=== PATIENT | male | born 2000 | race Caucasian/White ===

== ENCOUNTER 2021-04-22 18:09 | Emergency (ER) | payer MEDICAID ==
[~2021-04-22] VITALS: Ht 185 cm; Wt 98.0 kg
[2021-04-22] MEDS ORDERED: KETOROLAC 30 MG/ML VIAL IM ONE (19:00)
--- NOTE | 2021-04-22 19:03 | ED Lower Extremity ---
General Chief Complaint: Trauma-Non Activation Stated Complaint: LEG PAIN Nursing Triage Note: PT ARRIVED PER EMS, PT WAS PLAYING FOOTBALL FELL, TWISTED L LEG AND FEMUR AREA STATES HAS KNEE PAIN. PT STATES WHEN HE FELL HE HIT HIS HEAD AND HAD 2 EPISODED OF LOC. PT ARRIVED W C-COLLAR IN PLACE, STATES WHEN HE TURNS HIS HEAD HE IS DIZZY. PT HAS SL #22 R FA. EMS STATES PT WAS HYPERVENTILATION WHEN THEY ARRIVED ON SCENE Source: patient Exam Limitations: no limitations History of Present Illness Date Seen by Provider: Apr 22, 2021 Time Seen by Provider: 18:50 Initial Comments 20-year-old male brought to the emergency room by ambulance chief complaint of left hip thigh and leg pain, some cervical spine pain while playing football with a sibling about an hour and a half prior to arrival. Patient states that he had a loss of consciousness twice. He states he believes his length of loss of consciousness was less than 2 minutes. States that he felt a little nauseous at one point. Did not vomit. Complains of right lateral neck pain. Cervical collar is in place. No alcohol or other illicit substances on board. He complains of left thigh and leg pain and initially complained of numbness to the left leg. He was not able to get himself up off the ground after the injury. No complaints of back pain chest pain or abdominal pain. No recent illnesses. All other review of systems reviewed and negative except as stated. Onset: just prior to arrival (3:30pm) Severity: moderate Pain/Injury Location: left hip, left leg, left knee, left thigh Method of Injury: sports injury Modifying Factors: Improves With Immobilization; Worse With Movement Allergies and Home Medications Allergies Coded Allergies: No Known Drug Allergies (Unverified , 04/22/21) Patient Home Medication List Home Medication List Reviewed: Yes Review of Systems Constitutional: see HPI EENTM: no symptoms reported Respiratory: no symptoms reported Cardiovascular: no symptoms reported Gastrointestinal: no symptoms reported Musculoskeletal: neck pain, other (left hip/thigh/leg pain) Skin: other (abrasion) Psychiatric/Neurological: Paresthesia (left leg) All Other Systems Reviewed Negative Unless Noted: Yes Past Tuxgmhe-Zxoedd-Euzpbg Hx Patient Social History Tobacco Use?: No Substance use?: No Additional substance use comme: HX 2 YEARS AGO Alcohol Use?: No Pt feels they are or have been: No Immunizations Up To Date First/Initial COVID19 Vaccinat: 2020 Second COVID19 Vaccination Fran: 2020 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 oz. kg; 28.00 BMI Method: General Appearance: WD/WN, no apparent distress HEENT: PERRL/EOMI, pharynx normal (tonsils surgically absent) Neck: other (right upper cervical paraspinous muscle tenderness/suboccipital on the right; no midline tenderness;) Cardiovascular: regular rate, rhythm Respiratory: lungs clear, normal breath sounds, no respiratory distress, no accessory muscle use Gastrointestinal: non tender, soft Hips: bilateral hip non-tender, bilateral hip normal inspection; left hip limited range of motion, left hip pain (left thigh), left hip soft tissue tenderness (anterior thigh), left hip other (prefers position of comfort - left hip flexed and external rotation) Legs: bilateral leg non-tender, bilateral leg normal inspection; right leg norm al range of motion, right leg no evidence of injury; left leg soft tissue tenderness (to palpation of anterior tibia - no ecchymoses or swelling) Knees: bilateral knee non-tender, bilateral knee normal inspection; right knee normal range of motion; bilateral knee no evidence of injury Ankles: bilateral ankle non-tender, bilateral ankle normal inspection, bilateral ankle normal range of motion, bilateral ankle no evidence of injury Feet: bilateral foot non-tender, bilateral foot normal inspection, bilateral foot normal range of motion, bilateral foot no evidence of injury; left foot other (abrasion left plantar 1st MTP joint - ) Neurologic/Tendon: normal sensation, normal motor functions, responds to pain Neurologic/Psychiatric: 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 as tested, no motor/sensory deficits, alert, normal mood/affect, oriented x 3, other (DTR's 2+ patellar and achilles bilaterally) Skin: normal color, warm/dry, other (scattered abrasions bilateral feet and left anterior distal tib) Progress/Results/Core Measures Results/Orders My Orders Orders - NATASHA PINTO MD Pelvis With Left Hip 2-3 Views (04/22/21 18:57) Femur, Left, 2 Views (04/22/21 18:57) Ketorolac Injection (Toradol Injection) (04/22/21 19:00) Orphenadrine Inj (Ed Only) (Norflex Inje (04/22/21 19:00) Medications Given in ED Current Medications Medications Dose Ordered Sig/Christal Route Start Time Stop Time Status Last Admin Dose Admin Ketorolac Tromethamine 30 mg ONCE ONCE IM 04/22/21 19:00 04/22/21 19:01 DC 04/22/21 19:05 30 MG Vital Signs/I&O 04/22/21 18:12 Temp 36.8 Pulse 94 Resp 18 B/P (MAP) 144/97 (113) Pulse Ox 94 Blood Pressure Mean: 113 Progress Progress Note : Time: 19:50 Progress Note Patient's x-rays reviewed, no evidence of fracture in the pelvis, left hip and left femur. He is given Toradol in the emergency department for pain. Recommended ice, anti-inflammatories. He verbalized understanding of the plan of care. All questions were sought and answered Diagnostic Imaging Diagonstic Imaging: Xray Comments [email or web address] [place], [place] NAME: [employer] REC#: [id number] PT STATUS: REG ER : 2000 PHYSICIAN: NATASHA PINTO MD ADMIT DATE: 04/22/21/ER Draft Date of Exam:04/22/21 PELVIS WITH LEFT HIP 2-3 VIEWS EXAMINATION: Left hip unilateral 2 or 3 views (w/pelvis when done) HISTORY: Left femur pain COMPARISON: None available. FINDINGS: Pelvic alignment is normal. No acute fracture is seen. Joint spaces are normal. IMPRESSION: 1. No fracture in the pelvis or left hip. Dictated on workstation # [email or web address] Dict: 04/22/211929 Trans: 04/22/211930 CV [id number] Interpreted by: ANGELIKA OLGUIN MD Electronically signed by: Diagonstic Imaging: Xray Comments [email or web address] [place], [place] NAME: [employer] REC#: [id number] PT STATUS: REG ER : 2000 PHYSICIAN: NATASHA PINTO MD ADMIT DATE: 04/22/21/ER Draft Date of Exam:04/22/21 FEMUR, LEFT, 2 VIEWS EXAMINATION: Left femur 2 or more views HISTORY: Football injury COMPARISON: None available. FINDINGS: Alignment is normal. No fracture is seen. Joint spaces are normal. IMPRESSION: 1. No fracture. Dictated on workstation # [email or web address] Dict: 04/22/211927 Trans: 04/22/211929 CV [id number] Interpreted by: ANGELIKA OLGUIN MD Electronically signed by: Departure Impression Primary Impression: Cervical strain, acute Qualified Codes: S16.1XXA - Strain of muscle, fascia and tendon at neck level, initial encounter Additional Impressions: Head injury consultation Contusion of left thigh, initial encounter Disposition: HOME, SELF-CARE Condition: Stable Departure-Patient Inst. Decision time for Depature: 19:51 Referrals: [facility] [place] Patient Instructions: Minor Head Injury (DC), Contusion (DC), Neck Sprain (DC) Add. Discharge Instructions: Ice packs to the area of soreness, 20 minutes at a time 3-4 times daily. Idze-alh-eqpebyg ibuprofen, 4 tablets with food which is 800 mg every 8 hours as needed for pain. Or you can take Alleve, 2 tablets (500mg) every 12 hours. Gentle stretching of sore areas. Return to the ER for worsening pain, swelling, severe headache, persistent vomiting, change in mental status or other emergent, concerning symptoms. NATASHA PINTO MD Apr 22, 2021 19:03
[2021-04-22] MEDS: ORPHENADRINE 60 MG/2 ML (NORFLEX) AMP (ED ONLY) IM ONE ×2 (19:05→19:09)
--- NOTE | 2021-04-22 19:31 | Diagnostic Imaging Report ---
EXAMINATION: Left femur 2 or more views HISTORY: Football injury COMPARISON: None available. FINDINGS: Alignment is normal. No fracture is seen. Joint spaces are normal. IMPRESSION: 1. No fracture. Dictated by: Dictated on workstation # [email or web address]
--- NOTE | 2021-04-22 19:31 | Diagnostic Imaging Report ---
EXAMINATION: Left hip unilateral 2 or 3 views (w/pelvis when done) HISTORY: Left femur pain COMPARISON: None available. FINDINGS: Pelvic alignment is normal. No acute fracture is seen. Joint spaces are normal. IMPRESSION: 1. No fracture in the pelvis or left hip. Dictated by: Dictated on workstation # [email or web address]
[2021-04-22 20:00] VITALS: BP 132/89
== END 2021-04-22 20:03 | disposition home or self-care (01) ==
LOC: ER 18:12
DX: S16.1XXA Strain of muscle, fascia and tendon at neck level, initial encounter (principal); S70.12XA Contusion of left thigh, initial encounter; S06.9X9A Unspecified intracranial injury with loss of consciousness of unspecified duration, initial encounter; W09.8XXA Fall on or from other playground equipment, initial encounter; Y93.61 Activity, american tackle football
CPT/HCPCS: 73552